=== PATIENT | male | born 1950 | race Caucasian/White ===

== ENCOUNTER 2019-10-25 03:25 | Emergency (ER) | payer MEDICARE, OTHER ==
[~2019-10-25] VITALS: Ht 165.1 cm; Wt 72.6 kg
[2019-10-25 03:25] VITALS: BP_SYST 128
--- NOTE | 2019-10-25 03:25 | NUR ---
BROUGHT IN BY [facility] AND PLACED IN BED #6, TRIAGED. REPORT GIVEN TO DIANA
--- NOTE | 2019-10-25 03:30 | NUR ---
Patient BIB BLS A&O x4 complaining of generalized weakness. Patient states he finsihed smoking a cigarette and had an episode of shortness of breath that lasted about 10 seconds long. Patient has a history of CHF and HTN and is noncompliant with medications. Patient is residing at the [facility] [id number] in [place]. patient denies feeling short of breath at the moment, nausea, vomiting, chest pain. patient does not have any other medical complaints at this time.
--- NOTE | 2019-10-25 03:32 | NUR ---
ER Dr. So at bedside examining patient.
--- NOTE | 2019-10-25 03:49 | NUR ---
Maite Perkins, at bedside in room.
[2019-10-25 04:01] LABS: BILIRUBIN,URINE 1+ (NEGATIVE); BLOOD, URINE 1+ (NEGATIVE); CLARITY/URINE CLEAR (CLEAR); COLOR,URINE YELLOW (YELLOW); GLUCOSE,URINE NEGATIVE (NEGATIVE); KETONES,URINE NEGATIVE (NEGATIVE); LEUKOCYTE ESTERASE ,URINE NEGATIVE (NEGATIVE); NITRITE, URINE NEGATIVE (NEGATIVE); PH,URINE 5.5 (5.0-8.0); PROTEIN URINE 3+ (NEGATIVE)
--- NOTE | 2019-10-25 04:02 | NUR ---
PATIENT SLEEPING COMFORTABLE IN BED. VITAL SIGNS STABLE.
[2019-10-25 04:22] LABS: BARBITURATE, URINE NEGATIVE (NEG <=200); METHAMPHETAMINES SCREEN,URINE POSITIVE (NEG <=500); URINE AMPHETAMINE POSITIVE (NEG <=500)
[2019-10-25 04:23] LABS: BENZODIAZEPINE, URINE NEGATIVE (NEG <=150); CANNABINOID, URINE NEGATIVE (NEG <=50); COCAINE, URINE NEGATIVE (NEG <=150); OPIATE, URINE POSITIVE (NEG <=100); PHENCYCLIDINE SCREEN,URINE NEGATIVE (NEG <=25); UR TRICYCLIC ANTIDEPRESSANTS NEGATIVE (NEG <=300); URINE METHADONE NEGATIVE (NEG <=200); URINE OXYCODONE SCREEN NEGATIVE (NEG <=100); URINE PROPOXYPHENE SCREEN NEGATIVE (NEG <=300)
[2019-10-25 04:31] LABS: BACTERIA,URINE FEW /HPF (None Seen); WBC,URINE 0-3 /HPF (0-3)
[2019-10-25 04:32] LABS: HYALINE CASTS, URINE 0-10 /LPF (None Seen)
--- NOTE | 2019-10-25 04:37 | NUR ---
# 22 gauge angiocath placed to left wrist. Use of asceptic technique. Opsite placed over site. Blood return noted. Blood for lab drawn from site. Flushed with 10 cc of normal saline. No evidence of infiltration noted. Patient tolerated well.
[2019-10-25 04:49] LABS: BASOPHILS % (AUTO) 0.4 % (0.0-2.0); EOSINOPHILS % (AUTO) 0.5 % (0.0-4.0); HEMATOCRIT 32.8 % (36-54); HEMOGLOBIN 10.7 g/dL (14.0-18.0); LYMPHOCYTES # (AUTO) 0.4 K/uL (1.0-5.5); LYMPHOCYTES % (AUTO) 6.7 % (20.5-51.5); MEAN CORPUSCULAR HEMOGLOBIN 30 pg (27-31); MEAN CORPUSCULAR HGB CONC 33 % (32-36); MEAN CORPUSCULAR VOLUME 90 fL (79.0-98.0); MONOCYTES # (AUTO) 0.5 K/uL (0.0-1.0); NEUTROPHILS # (AUTO) 5.6 K/uL (1.8-7.7); NEUTROPHILS % (AUTO) 85.4 % (40.0-70.0); PLATELET COUNT (AUTO) 167 K/uL (130-430); RED BLOOD CELL COUNT(AUTO) 3.64 MIL/uL (4.2-6.2); RED CELL DISTRIBUTION WIDTH 16.3 % (9.0-15.0); WHITE BLOOD COUNT (AUTO) 6.6 K/uL (4.8-10.8)
[2019-10-25] MEDS ORDERED: FUROSEMIDE 40 MG/4 ML VIAL IVP ONE (05:00)
[2019-10-25 05:04] LABS: ANION GAP 7 (5-15); CALCIUM 8.1 mg/dL (8.4-11.0); CHLORIDE 103 mmol/L (98-107); CREATININE 0.99 mg/dL (0.55-1.30); GLUCOSE 116 mg/dL (70-99); POTASSIUM 4.4 mmol/L (3.5-5.1); SODIUM SERUM 135 mmol/L (136-145); UREA NITROGEN, BLOOD 25 mg/dL (8-21)
[2019-10-25 05:08] LABS: INR 1.5 (0.80-1.20)
[2019-10-25 05:12] LABS: ALANINE AMINOTRANSFERASE 20 U/L (12-78); ALBUMIN 2.8 g/dL (3.4-4.8); ASPARTATE AMINOTRANSFERASE 27 U/L (10-37); TOTAL BILIRUBIN 0.9 mg/dL (0.0-1.0)
--- NOTE | 2019-10-25 05:32 | NUR ---
Patient tolerated medications well. Patient laying in bed, in and out of sleep. Vital signs stable.
--- NOTE | 2019-10-25 06:20 | NUR ---
Dr. So informed patient he is going to be admitted to the hospital and patient is refusing and not wanting to be admitted.
--- NOTE | 2019-10-25 06:25 | NUR ---
Nava Olivas, patients friend, was called at the [facility] room 125 to ask if she was able to pharmacy picking technician patient from ER. Nava stated she would send a lyft for the patient. patient is aware.
[2019-10-25 06:30] VITALS: BP_SYST 127
--- NOTE | 2019-10-25 06:30 | NUR ---
Patient refused to sign Against Medical Advice form. aware.
--- NOTE | 2019-10-25 06:35 | NUR ---
Patients IV was taken out and wristband taken off. Patient clothed in the clothing he came in with as well as an orange gown and [facility] socks. Patient given two prescriptions for Potassium and Lasiz provided by Dr. So and educated. Patient to waiting room awaiting lyft called by friend Nava.
[2019-10-25] MEDS ORDERED: IOHEXOL 350 mgI/mL, 150 ML INFUS..BTL IV ONE (07:56)
== END 2019-10-25 06:30 | disposition left against medical advice (07) ==
LOC: SED 03:25
DX: I50.9 Heart failure, unspecified (principal); F15.90 Other stimulant use, unspecified, uncomplicated; F17.200 Nicotine dependence, unspecified, uncomplicated
CPT/HCPCS: 36415; 71045; 80053; 80307; 81000; 83880; 84484; 85025; 85379; 85610; 85730; 93005; 96374; 99285; J1940; Q9967

== ENCOUNTER 2019-10-25 23:53 | Inpatient (IN) | payer MEDICAID, MEDICARE, OTHER ==
[~2019-10-25] VITALS: Ht 165.1 cm; Wt 63.3 kg
[2019-10-26] VITALS (9 sets, daily range): BP systolic 114–133
[2019-10-26] MEDS ORDERED: FUROSEMIDE 20 MG/2 ML VIAL IVP ONE (00:45)
[2019-10-26] MEDS ORDERED: NALOXONE HCL 0.4 MG/ML AMP (NARCAN) IVP ONE (00:45)
[2019-10-26] MEDS ORDERED: NITROGLYCERIN 1 INCH (GM) OINT. TP ONE (00:45)
[2019-10-26 01:32] LABS: BASOPHILS # (AUTO) 0.3 K/uL (0.0-0.2); EOSINOPHILS % (AUTO) 0.1 % (0.0-4.0); HEMATOCRIT 36.3 % (36-54); HEMOGLOBIN 11.6 g/dL (14.0-18.0); LYMPHOCYTES # (AUTO) 0.4 K/uL (1.0-5.5); LYMPHOCYTES % (AUTO) 4.3 % (20.5-51.5); MEAN CORPUSCULAR HEMOGLOBIN 30 pg (27-31); MEAN CORPUSCULAR HGB CONC 32 % (32-36); MEAN CORPUSCULAR VOLUME 92 fL (79.0-98.0); MONOCYTES # (AUTO) 0.4 K/uL (0.0-1.0); MONOCYTES % (AUTO) 4.9 % (1.7-9.3); NEUTROPHILS # (AUTO) 7.6 K/uL (1.8-7.7); NEUTROPHILS % (AUTO) 86.7 % (40.0-70.0); PLATELET COUNT (AUTO) 178 K/uL (130-430); RED BLOOD CELL COUNT(AUTO) 3.93 MIL/uL (4.2-6.2); RED CELL DISTRIBUTION WIDTH 16.7 % (9.0-15.0)
[2019-10-26 01:34] LABS: WHITE BLOOD COUNT (AUTO) 8.7 K/uL (4.8-10.8)
[2019-10-26 02:13] LABS: ANION GAP 15 (5-15); CALCIUM 8.2 mg/dL (8.4-11.0); CHLORIDE 102 mmol/L (98-107); CREATININE 1.21 mg/dL (0.55-1.30); GLUCOSE 146 mg/dL (70-99); POTASSIUM 4.1 mmol/L (3.5-5.1); SODIUM SERUM 136 mmol/L (136-145); UREA NITROGEN, BLOOD 27 mg/dL (8-21)
[2019-10-26 02:18] LABS: INR 1.7 (0.80-1.20); PROTHROMBIN TIME 16.8 SECS (9.5-12.5)
[2019-10-26 02:19] LABS: ALANINE AMINOTRANSFERASE 19 U/L (12-78); ALBUMIN 2.9 g/dL (3.4-4.8); ASPARTATE AMINOTRANSFERASE 35 U/L (10-37)
[2019-10-26 02:20] LABS: TOTAL BILIRUBIN 1.5 mg/dL (0.0-1.0)
[2019-10-26] MEDS ORDERED: LORazepam 2 MG/ML VIAL IVP ONE (02:45)
[2019-10-26] MEDS ORDERED: ENOXAPARIN SODIUM 80 MG/0.8 ML SYRINGE SUBCUT ONE (04:30)
[2019-10-26] MEDS ORDERED: CARVEDILOL 6.25 MG TABLET (COREG) PO ONE (09:45)
[2019-10-26] MEDS: PIPERACILLIN/TAZO 3.375/DEX-IS 50 ML IV SCH ×3 (10:25→19:00)
[2019-10-26] MEDS ORDERED: MORPHINE 2 MG/ML INJ. SYRINGE IVP PRN ×2 (20:00→22:00)
[2019-10-26] MEDS ORDERED: LORazepam 2 MG/ML VIAL IVP PRN (20:00)
[2019-10-26] MEDS: FUROSEMIDE 40 MG/4 ML VIAL IVP SCH (20:29)
[2019-10-26] MEDS: CARVEDILOL 6.25 MG TABLET (COREG) PO SCH (20:30)
[2019-10-26] MEDS ORDERED: MORPHINE 4 MG/ML INJ. SYRINGE IVP ONE (22:00)
[2019-10-26] MEDS ORDERED: MORPHINE 4 MG/ML INJ. SYRINGE IVP PRN (22:00)
[2019-10-26] MEDS ORDERED: ALBUTEROL SULFATE 0.083% 2.5 MG/3 ML VIAL.NEB INH PRN (22:00)
[2019-10-27] VITALS (16 sets, daily range): BP systolic 105–134
[2019-10-27] MEDS: PIPERACILLIN/TAZO 3.375/DEX-IS 50 ML IV SCH ×4 (00:35→20:14)
[2019-10-27 06:56] LABS: BASOPHILS % (AUTO) 0.6 % (0.0-2.0); EOSINOPHILS % (AUTO) 0.5 % (0.0-4.0); HEMATOCRIT 29.4 % (36-54); HEMOGLOBIN 9.5 g/dL (14.0-18.0); LYMPHOCYTES # (AUTO) 0.5 K/uL (1.0-5.5); LYMPHOCYTES % (AUTO) 10.9 % (20.5-51.5); MEAN CORPUSCULAR HEMOGLOBIN 29 pg (27-31); MEAN CORPUSCULAR HGB CONC 32 % (32-36); MEAN CORPUSCULAR VOLUME 91 fL (79.0-98.0); MONOCYTES # (AUTO) 0.5 K/uL (0.0-1.0); MONOCYTES % (AUTO) 11.6 % (1.7-9.3); NEUTROPHILS # (AUTO) 3.3 K/uL (1.8-7.7); NEUTROPHILS % (AUTO) 76.4 % (40.0-70.0); PLATELET COUNT (AUTO) 119 K/uL (130-430); RED BLOOD CELL COUNT(AUTO) 3.25 MIL/uL (4.2-6.2); RED CELL DISTRIBUTION WIDTH 16.3 % (9.0-15.0); WHITE BLOOD COUNT (AUTO) 4.4 K/uL (4.8-10.8)
[2019-10-27 07:42] LABS: ALANINE AMINOTRANSFERASE 24 U/L (12-78); ALBUMIN 2.4 g/dL (3.4-4.8); ANION GAP 8 (5-15); ASPARTATE AMINOTRANSFERASE 36 U/L (10-37); CALCIUM 7.4 mg/dL (8.4-11.0); CHLORIDE 103 mmol/L (98-107); CREATININE 1.22 mg/dL (0.55-1.30); GLUCOSE 87 mg/dL (70-99); POTASSIUM 3.8 mmol/L (3.5-5.1); SODIUM SERUM 137 mmol/L (136-145); THYROID STIMULATING HORMONE 0.35 uIu/mL (0.36-3.74); TOTAL BILIRUBIN 1.2 mg/dL (0.0-1.0); UREA NITROGEN, BLOOD 27 mg/dL (8-21)
[2019-10-27] MEDS ORDERED: FURO-149 PO (08:39)
[2019-10-27] MEDS ORDERED: FERR-69 PO (08:43)
[2019-10-27] MEDS ORDERED: POTA20TA83 PO (08:43)
[2019-10-27] MEDS ORDERED: LISI-209 PO (08:44)
[2019-10-27] MEDS ORDERED: ASA81 PO (08:44)
[2019-10-27] MEDS ORDERED: FOLI-43 PO (08:45)
[2019-10-27 09:08] LABS: CHOLESTEROL 116 mg/dL (<200); HDL CHOLESTEROL 36 mg/dL (>45); LDL CHOLESTEROL 70 mg/dL (<100); TRIGLYCERIDES 60 mg/dL (30-150)
[2019-10-27] MEDS: THIAMINE HCL 100 MG TABLET PO SCH (09:18)
[2019-10-27] MEDS: FAMOTIDINE PF 20 MG/2 ML VIAL IVP SCH (09:18)
[2019-10-27] MEDS: FUROSEMIDE 40 MG/4 ML VIAL IVP SCH ×2 (09:18→20:18)
[2019-10-27] MEDS: FOLIC ACID 1 MG TABLET PO SCH (09:18)
[2019-10-27 11:44] LABS: BARBITURATE, URINE NEGATIVE (NEG <=200); BENZODIAZEPINE, URINE NEGATIVE (NEG <=150); CANNABINOID, URINE NEGATIVE (NEG <=50); COCAINE, URINE NEGATIVE (NEG <=150); METHAMPHETAMINES SCREEN,URINE NEGATIVE (NEG <=500); OPIATE, URINE POSITIVE (NEG <=100); PHENCYCLIDINE SCREEN,URINE NEGATIVE (NEG <=25); UR TRICYCLIC ANTIDEPRESSANTS NEGATIVE (NEG <=300); URINE AMPHETAMINE NEGATIVE (NEG <=500); URINE METHADONE POSITIVE (NEG <=200); URINE OXYCODONE SCREEN NEGATIVE (NEG <=100); URINE PROPOXYPHENE SCREEN NEGATIVE (NEG <=300)
[2019-10-27] MEDS: CARVEDILOL 6.25 MG TABLET (COREG) PO SCH ×2 (12:05→20:19)
[2019-10-27] MEDS ORDERED: VECURONIUM BROMIDE 10 MG/VIAL (NORCURON) IVP ONE (16:36)
[2019-10-27] MEDS ORDERED: ETOMIDATE 20 MG/ 10 ML VIAL (AMIDATE) IVP ONE (16:36)
[2019-10-27] MEDS ORDERED: NALOXONE HCL 0.4 MG/ML AMP (NARCAN) IVP ONE (18:00)
[2019-10-27] MEDS ORDERED: ATROPINE SULFATE 1 MG/10 ML SYRINGE IVP ONE (18:00)
[2019-10-27] MEDS ORDERED: EPINEPHrine JECT 0.1 MG/ML SYR IVP ONE (18:00)
[2019-10-27] MEDS ORDERED: NS 1000 ML IV.SOLN IV ONE (18:00)
[2019-10-27] MEDS ORDERED: NOREPINEPHRINE BITARTRATE 4 MG in NS 246 ML IV PRN (20:00)
[2019-10-27] MEDS ORDERED: PROPOFOL DRIP 100 ML IV ONE (21:26)
[2019-10-27] MEDS: PROPOFOL DRIP 100 ML IV PRN (23:56)
[2019-10-28] VITALS (37 sets, daily range): BP systolic 98–120
[2019-10-28] MEDS: PIPERACILLIN/TAZO 3.375/DEX-IS 50 ML IV SCH ×5 (00:42→23:57)
[2019-10-28] MEDS: PROPOFOL DRIP 100 ML IV PRN (04:07)
[2019-10-28] MEDS ORDERED: PROPOFOL DRIP 100 ML IV ONE (04:20)
[2019-10-28 05:54] LABS: BASOPHILS % (AUTO) 0.4 % (0.0-2.0); EOSINOPHILS % (AUTO) 0.1 % (0.0-4.0); HEMATOCRIT 32.1 % (36-54); HEMOGLOBIN 10.4 g/dL (14.0-18.0); LYMPHOCYTES # (AUTO) 0.2 K/uL (1.0-5.5); MEAN CORPUSCULAR HEMOGLOBIN 29 pg (27-31); MEAN CORPUSCULAR HGB CONC 32 % (32-36); MEAN CORPUSCULAR VOLUME 90 fL (79.0-98.0); MONOCYTES # (AUTO) 0.5 K/uL (0.0-1.0); MONOCYTES % (AUTO) 6.3 % (1.7-9.3); NEUTROPHILS # (AUTO) 6.9 K/uL (1.8-7.7); NEUTROPHILS % (AUTO) 90.2 % (40.0-70.0); PLATELET COUNT (AUTO) 133 K/uL (130-430); RED BLOOD CELL COUNT(AUTO) 3.56 MIL/uL (4.2-6.2); RED CELL DISTRIBUTION WIDTH 16.4 % (9.0-15.0); WHITE BLOOD COUNT (AUTO) 7.7 K/uL (4.8-10.8)
[2019-10-28 06:59] LABS: TOTAL IRON BIND. CAPACITY 218 ug/dL (250-450)
[2019-10-28 08:26] LABS: ALANINE AMINOTRANSFERASE 26 U/L (12-78); ALBUMIN 2.3 g/dL (3.4-4.8); ANION GAP 10 (5-15); ASPARTATE AMINOTRANSFERASE 35 U/L (10-37); CALCIUM 7.4 mg/dL (8.4-11.0); CHLORIDE 102 mmol/L (98-107); CREATININE 1.65 mg/dL (0.55-1.30); GLUCOSE 112 mg/dL (70-99); LIPASE 77 U/L (73-393); POTASSIUM 3.6 mmol/L (3.5-5.1); SODIUM SERUM 137 mmol/L (136-145); TOTAL BILIRUBIN 0.9 mg/dL (0.0-1.0); UREA NITROGEN, BLOOD 34 mg/dL (8-21)
[2019-10-28 09:11] LABS: ACETAMINOPHEN < 1 ug/mL (1-30)
[2019-10-28] MEDS ORDERED: LACTULOSE 20 GM/30 ML UDC NG ONE (09:30)
[2019-10-28] MEDS: THIAMINE HCL 100 MG TABLET PO SCH (10:05)
[2019-10-28] MEDS: FOLIC ACID 1 MG TABLET PO SCH (10:05)
[2019-10-28] MEDS: FUROSEMIDE 40 MG/4 ML VIAL IVP SCH ×2 (10:05→22:11)
[2019-10-28] MEDS: CARVEDILOL 6.25 MG TABLET (COREG) PO SCH ×2 (10:05→22:12)
[2019-10-28] MEDS: FAMOTIDINE PF 20 MG/2 ML VIAL IVP SCH (10:06)
[2019-10-28 12:01] LABS: INR 1.5 (0.80-1.20); PROTHROMBIN TIME 15.3 SECS (9.5-12.5)
[2019-10-28] MEDS: LACTULOSE 20 GM/30 ML UDC NG SCH (22:11)
[2019-10-29] VITALS (31 sets, daily range): BP systolic 99–126
[2019-10-29 05:48] LABS: BASOPHILS % (AUTO) 0.4 % (0.0-2.0); EOSINOPHILS % (AUTO) 0.1 % (0.0-4.0); HEMATOCRIT 33.6 % (36-54); HEMOGLOBIN 10.9 g/dL (14.0-18.0); LYMPHOCYTES # (AUTO) 0.5 K/uL (1.0-5.5); LYMPHOCYTES % (AUTO) 8.2 % (20.5-51.5); MEAN CORPUSCULAR HEMOGLOBIN 29 pg (27-31); MEAN CORPUSCULAR HGB CONC 33 % (32-36); MEAN CORPUSCULAR VOLUME 90 fL (79.0-98.0); MONOCYTES # (AUTO) 0.5 K/uL (0.0-1.0); MONOCYTES % (AUTO) 7.9 % (1.7-9.3); NEUTROPHILS # (AUTO) 5.1 K/uL (1.8-7.7); NEUTROPHILS % (AUTO) 83.4 % (40.0-70.0); PLATELET COUNT (AUTO) 125 K/uL (130-430); RED BLOOD CELL COUNT(AUTO) 3.73 MIL/uL (4.2-6.2); RED CELL DISTRIBUTION WIDTH 16.2 % (9.0-15.0); WHITE BLOOD COUNT (AUTO) 6.2 K/uL (4.8-10.8)
[2019-10-29 06:06] LABS: HEPATITIS A AB, IgM Negative (Negative); HEPATITIS B CORE AB, IgM Negative (Negative); HEPATITIS B SURFACE AG Negative (Negative)
[2019-10-29 06:13] LABS: ALANINE AMINOTRANSFERASE 23 U/L (12-78); ALBUMIN 2.2 g/dL (3.4-4.8); ANION GAP 8 (5-15); ASPARTATE AMINOTRANSFERASE 27 U/L (10-37); CALCIUM 7.5 mg/dL (8.4-11.0); CHLORIDE 103 mmol/L (98-107); CREATININE 2.09 mg/dL (0.55-1.30); GLUCOSE 101 mg/dL (70-99); SODIUM SERUM 142 mmol/L (136-145); TOTAL BILIRUBIN 0.9 mg/dL (0.0-1.0); UREA NITROGEN, BLOOD 38 mg/dL (8-21)
[2019-10-29] MEDS: PIPERACILLIN/TAZO 3.375/DEX-IS 50 ML IV SCH ×3 (06:31→17:24)
[2019-10-29 08:06] LABS: AFP, TUMOR MARKER 2.1 ng/mL (0.0-8.3); ANTI NUCLEAR AB WITH REFLEX Negative (Negative)
[2019-10-29] MEDS: FAMOTIDINE PF 20 MG/2 ML VIAL IVP SCH (10:00)
[2019-10-29] MEDS: FOLIC ACID 1 MG TABLET PO SCH (10:42)
[2019-10-29] MEDS: FUROSEMIDE 40 MG/4 ML VIAL IVP SCH ×2 (10:43→21:30)
[2019-10-29] MEDS: THIAMINE HCL 100 MG TABLET PO SCH (10:43)
[2019-10-29] MEDS: CARVEDILOL 6.25 MG TABLET (COREG) PO SCH ×2 (10:44→21:00)
[2019-10-29] MEDS: LACTULOSE 20 GM/30 ML UDC NG SCH ×2 (10:45→21:32)
[2019-10-29] MEDS ORDERED: LACTULOSE 20 GM/30 ML UDC ONE (11:03)
[2019-10-29] MEDS ORDERED: POTASSIUM CHLORIDE 20 MEQ/PKT PACKET ONE (11:05)
[2019-10-29] MEDS: POTASSIUM CHLORIDE 20 MEQ/PKT PACKET PO SCH ×2 (11:09→21:30)
[2019-10-29] MEDS ORDERED: MORPHINE 2 MG/ML INJ. SYRINGE IVP PRN (22:30)
[2019-10-30] VITALS: BP_SYST 112
[2019-10-30] MEDS: PIPERACILLIN/TAZO 3.375/DEX-IS 50 ML IV SCH ×4 (00:19→18:27)
[2019-10-30 06:57] LABS: BASOPHILS % (AUTO) 0.3 % (0.0-2.0); EOSINOPHILS % (AUTO) 0.6 % (0.0-4.0); HEMATOCRIT 35.6 % (36-54); HEMOGLOBIN 11.5 g/dL (14.0-18.0); LYMPHOCYTES # (AUTO) 0.6 K/uL (1.0-5.5); LYMPHOCYTES % (AUTO) 11.1 % (20.5-51.5); MEAN CORPUSCULAR HEMOGLOBIN 29 pg (27-31); MEAN CORPUSCULAR HGB CONC 32 % (32-36); MEAN CORPUSCULAR VOLUME 89 fL (79.0-98.0); MONOCYTES # (AUTO) 0.6 K/uL (0.0-1.0); MONOCYTES % (AUTO) 10.8 % (1.7-9.3); NEUTROPHILS # (AUTO) 4.1 K/uL (1.8-7.7); NEUTROPHILS % (AUTO) 77.2 % (40.0-70.0); PLATELET COUNT (AUTO) 115 K/uL (130-430); RED BLOOD CELL COUNT(AUTO) 3.99 MIL/uL (4.2-6.2); WHITE BLOOD COUNT (AUTO) 5.3 K/uL (4.8-10.8)
[2019-10-30 07:26] LABS: ALANINE AMINOTRANSFERASE 18 U/L (12-78); ALBUMIN 2.2 g/dL (3.4-4.8); ANION GAP 9 (5-15); ASPARTATE AMINOTRANSFERASE 24 U/L (10-37); CALCIUM 7.7 mg/dL (8.4-11.0); CHLORIDE 104 mmol/L (98-107); CREATININE 2.03 mg/dL (0.55-1.30); GLUCOSE 90 mg/dL (70-99); POTASSIUM 3.4 mmol/L (3.5-5.1); SODIUM SERUM 143 mmol/L (136-145); UREA NITROGEN, BLOOD 39 mg/dL (8-21)
[2019-10-30 08:00] VITALS: BP_SYST 122
[2019-10-30] MEDS: LACTULOSE 20 GM/30 ML UDC NG SCH ×2 (08:26→22:01)
[2019-10-30 08:30] VITALS: BP_SYST 122
[2019-10-30] MEDS: POTASSIUM CHLORIDE 20 MEQ/PKT PACKET PO SCH ×2 (08:33→22:01)
[2019-10-30] MEDS: FOLIC ACID 1 MG TABLET PO SCH (08:33)
[2019-10-30] MEDS: FUROSEMIDE 40 MG/4 ML VIAL IVP SCH ×2 (08:33→21:00)
[2019-10-30] MEDS: THIAMINE HCL 100 MG TABLET PO SCH (08:33)
[2019-10-30] MEDS: FAMOTIDINE PF 20 MG/2 ML VIAL IVP SCH (08:34)
[2019-10-30] MEDS: CARVEDILOL 6.25 MG TABLET (COREG) PO SCH ×2 (08:35→21:00)
[2019-10-30 12:00] VITALS: BP_SYST 103
[2019-10-30] MEDS: MUPIROCIN 2% TOPICAL OINTMENT 22 GM NS SCH ×2 (13:00→21:00)
[2019-10-30 15:13] LABS: APPEARANCE,SPUN,BODY FLUID CLEAR (CLEAR); BF APPEARANCE UNSPUN HAZY (CLEAR); BODY FLUID COLOR YELLOW (LT YELLOW); BODY FLUID SOURCE/ TYPE PLEURAL; BODY FLUID TOTAL VOLUME 900 mL; RBC, BODY FLUID 347 /uL; SOURCE/TYPE ,BODY FLUID TH; WBC, BODY FLUID 210 /uL
[2019-10-30 15:14] LABS: MONOCYTES,BODY FLUID 23 %; NEUTROPHIL, BODY FLUID 77 %
[2019-10-30 16:00] VITALS: BP_SYST 108
[2019-10-30 16:08] LABS: BODY FLUID GLUCOSE 116 mg/dL; BODY FLUID TOTAL PROTEIN 3.2 g/dL
[2019-10-30 20:00] VITALS: BP_SYST 102
[2019-10-31] MEDS: PIPERACILLIN/TAZO 3.375/DEX-IS 50 ML IV SCH ×3 (00:28→11:35)
[2019-10-31 08:00] VITALS: BP_SYST 113
[2019-10-31] MEDS ORDERED: PANTOPRAZOLE SODIUM 40 MG TAB PO SCH (09:00)
[2019-10-31] MEDS: MUPIROCIN 2% TOPICAL OINTMENT 22 GM NS SCH (09:00)
[2019-10-31] MEDS: LACTULOSE 20 GM/30 ML UDC NG SCH (09:26)
[2019-10-31] MEDS: CARVEDILOL 6.25 MG TABLET (COREG) PO SCH (09:27)
[2019-10-31] MEDS: FUROSEMIDE 40 MG/4 ML VIAL IVP SCH (09:27)
[2019-10-31] MEDS: THIAMINE HCL 100 MG TABLET PO SCH (09:28)
[2019-10-31] MEDS: FOLIC ACID 1 MG TABLET PO SCH (09:28)
[2019-10-31] MEDS: POTASSIUM CHLORIDE 20 MEQ/PKT PACKET PO SCH (09:28)
[2019-10-31 12:08] VITALS: BP_SYST 137
[2019-10-31] MEDS ORDERED: FOLI-43 PO (14:10)
[2019-10-31] MEDS ORDERED: BACTROBAN NS (14:10)
[2019-10-31] MEDS ORDERED: PRO40 PO (14:10)
[2019-10-31] MEDS ORDERED: COR6.25 PO (14:10)
[2019-10-31] MEDS ORDERED: THIA100T73 PO (14:10)
[2019-10-31] MEDS ORDERED: Thiamine Hcl PO (14:10)
[2019-10-31] MEDS ORDERED: DOXY100C PO (14:10)
[2019-10-31 14:36] VITALS: BP_SYST 113
[2019-11-02 14:17] LABS: ALPHA-1-ANTITRYPSIN, S 161 mg/dL (101-187)
[2019-11-03 10:19] LABS: ANTI-SMOOTH MUSCLE AB 16 Units (0-19)
== END 2019-10-31 16:15 | disposition home or self-care (01) | DRG 812 ==
LOC: SED 23:53 → STU 10-26 04:31 → SMU 10-27 16:56 → SIC 10-27 17:00 → STU 10-30 18:04
PROVIDERS: ADMIT Internal Medicine Hospice and Palliative Medicine; ATTEND Internal Medicine Hospice and Palliative Medicine
PROC: 3E0A3GC Introduction of Other Therapeutic Substance into Bone Marrow, Percutaneous Approach (ICD-10-PCS; 2019-10-26)
PROC: 5A1945Z Respiratory Ventilation, 24-96 Consecutive Hours (ICD-10-PCS; principal; 2019-10-27)
PROC: 5A12012 Performance of Cardiac Output, Single, Manual (ICD-10-PCS; 2019-10-27)
PROC: 0BH17EZ Insertion of Endotracheal Airway into Trachea, Via Natural or Artificial Opening (ICD-10-PCS; 2019-10-27)
PROC: 02HV33Z Insertion of Infusion Device into Superior Vena Cava, Percutaneous Approach (ICD-10-PCS; 2019-10-27)
PROC: B548ZZA Ultrasonography of Superior Vena Cava, Guidance (ICD-10-PCS; 2019-10-27)
PROC: 05JYXZZ Inspection of Upper Vein, External Approach (ICD-10-PCS; 2019-10-27)
PROC: 0W993ZZ Drainage of Right Pleural Cavity, Percutaneous Approach (ICD-10-PCS; 2019-10-31)
DX: T40.3X1A Poisoning by methadone, accidental (unintentional), initial encounter (principal); J69.0 Pneumonitis due to inhalation of food and vomit; J96.21 Acute and chronic respiratory failure with hypoxia; I46.9 Cardiac arrest, cause unspecified; E43 Unspecified severe protein-calorie malnutrition; G93.41 Metabolic encephalopathy; I50.41 Acute combined systolic (congestive) and diastolic (congestive) heart failure; J91.8 Pleural effusion in other conditions classified elsewhere; N17.9 Acute kidney failure, unspecified; B19.20 Unspecified viral hepatitis C without hepatic coma; I13.0 Hypertensive heart and chronic kidney disease with heart failure and stage 1 through stage 4 chronic kidney disease, or unspecified chronic kidney disease; R18.8 Other ascites; D68.9 Coagulation defect, unspecified; N18.9 Chronic kidney disease, unspecified; D63.8 Anemia in other chronic diseases classified elsewhere; R17 Unspecified jaundice; D64.9 Anemia, unspecified; F15.10 Other stimulant abuse, uncomplicated; R10.9 Unspecified abdominal pain; F11.10 Opioid abuse, uncomplicated; Z20.828 Contact with and (suspected) exposure to other viral communicable diseases; Z78.1 Physical restraint status; Y92.89 Other specified places as the place of occurrence of the external cause
CPT/HCPCS: 32555; 36415; 36600; 70450-TC; 71045; 76604; 76700-TC; 76770; 78580-TC; 80053; 80061; 80074; 80307; 81000-TC; 82103; 82105; 82140-TC; 82803-TC; 82947-TC; 82962; 82977-TC; 83516; 83540-TC; 83550-TC; 83690-TC; 83735-TC; 83880; 83986-TC; 84157-TC; 84443-TC; 84484; 85025; 85379; 85610-TC; 85730-TC; 86038; 87070-TC; 87081; 87205-TC; 88108; 88305; 89051-TC; 89060-TC; 92950; 93005; 93306; 93970; 94002; 94003; 94640; 96372; 96374; 96375; 99285; A9540; C1729; C1751; G0378; G0480; J0171; J0461; J1650; J1940; J2060; J2270; J2310; J2543; J2704; J3490; J7030; J7613; Q9967; U0003-CS